=== PATIENT | female | born 1975 | race Hispanic/Latino ===

== ENCOUNTER 2020-06-17 16:31 | Inpatient (IN) | payer MEDICAID, OTHER, SELFPAY ==
[2020-06-17 17:17] VITALS: BMI 31.7
[2020-06-17] MEDS ORDERED: hydrALAZINE 20 MG/ML VIAL SLOW IVP PRN (17:28)
--- NOTE | 2020-06-17 18:24 | PDOC.LDHP ---
Labor and Delivery H&P Chief complaint: other (NST/BPP) HPI: 45 y/o at 33w3d, patient of Dr. Mckeon, presents for scheduled NST/BPP for CHTN with superimposed preeclampsia. Doing well without complaints. Denies VB, LOF, ctx, PIH sx, or UTI sx. +FM. ROS neg for HEENT, cv, pulm, gi, gu, neuro, psych, skin, musculoskeletal or constitutional symptoms other than mentioned above. OB History Details: 1 SAB Current complications: hypertension, preeclampsia without severe features Current medications: pre-octavia vitamins, other (Procardia XL 60mg daily) Previous surgical history: none Allergies/Adverse Reactions: Allergies Allergy/AdvReac Type Severity Reaction Status Date / Time Penicillins Allergy Mild Hives Verified 06/17/20 17:18 Social history: none - Physical Exam Vital signs reviewed and normal: yes General: NAD, resting Lungs: nonlabored breathing Abdomen: gravid Extremeties: no edema FHT: category 1 (130s, mod variability, + accels, no decels) [place] contractions every: none - OB Labs Blood type: A RH: positive Antibody Screen: negative HIV: negative RPR: negative HEPSAg: negative 1 hour GCT: positive 3 hour GTT: normal Rubella: immune - Assessment 45 y/o at 33w3d with reassuring status with BPP 10/10. RADHA 10.9cm. Several intermittent severe range BPs. Protein creatinine ratio 6.6, which is double from last week. Labs otherwise stable. - Plan Plan: observation in L&D -: Continue to monitor BPs. Continuous monitoring of baby overnight.
[2020-06-17 19:12] LABS: #Basophils 0.1 thou/uL (0.0-0.2); #Eosinphils 0.2 thou/uL (0.0-0.7); #Lymphocytes 2.7 thou/uL (1.20-3.40); #Neutrophils 9.1 thou/uL (1.40-6.50); %Basophils 0.7 % (0.0-1.0); %Eosinophils 1.4 % (0.0-10.0); %Lymphocytes 20.5 % (21.0-51.0); %Monocytes 7.3 % (0.0-10.0); %Neutrophils 70.1 % (42.0-75.0); Hemoglobin 13.5 g/dL (12.0-16.0); Mean Corpuscular HGB CONC 32.4 g/dL (32.0-36.0); Mean Corpuscular Hemoglobin 29.9 pg (27.0-31.0); Mean Corpuscular Volume 92.4 fL (78.0-98.0); Mean Platelet Volume 7.5 fL (7.4-10.4); Platelet Count 332 thou/uL (130-400); RBC Distribution Width 13.2 % (11.5-14.5); Red Blood Cell (RBC) Count 4.51 mill/uL (4.20-5.40)
[2020-06-17 19:31] LABS: ALT (SGPT) 28 U/L (8-55); AST (SGOT) 25 U/L (5-34); Albumin 2.8 g/dL (3.5-5.0); Alkaline Phosphatase 152 U/L (40-110); Anion Gap 11 mmol/L (10-20); BUN (Urea Nitrogen) 10 mg/dL (7.0-18.7); Bilirubin, Total Less than 0.2 mg/dL (0.2-1.2); Calc. Creatinine Clearance 161 mL/min (70-130); Calcium 8.4 mg/dL (7.8-10.44); Carbon Dioxide 21 mmol/L (22-29); Chloride 107 mmol/L (98-107); Globulin 2.7 g/dL (2.4-3.5); Glucose 94 mg/dL (70-105); Potassium 4.1 mmol/L (3.5-5.1); Protein, Total 5.5 g/dL (6.0-8.3); Sodium 135 mmol/L (136-145)
[2020-06-17 19:36] LABS: Creatinine, Urine 37.27 mg/dL (47-110)
[2020-06-17] MEDS ORDERED: Acetaminophen 500 MG TAB PO PRN (20:18)
[2020-06-17] MEDS ORDERED: Promethazine HCl 25 MG/ML VIAL IM PRN (20:18)
[2020-06-17] MEDS ORDERED: Ondansetron PF 4 MG/2 ML Vial IVP PRN (20:18)
--- NOTE | 2020-06-17 20:49 | ULT ---
BIOPHYSICAL PROFILE: 06/17/20 HISTORY: Hypertension. TECHNIQUE: Multiplanar mares scale and color Doppler images were obtained in a limited ultrasound for bioph ysical profile. FINDINGS: There is live intrauterine . Movement was seen during the examination. A heart rate wa s not documented on this exam. RADHA is 10.9 cm, which is normal. The fetus scored 8 of 8 on the biophy sical profile, which is normal. The placenta is anterior in location. IMPRESSION: Normal biophysical profile. POS: EAA
[2020-06-18 06:54] LABS: Hemoglobin 12.6 g/dL (12.0-16.0); Mean Corpuscular Hemoglobin 29.3 pg (27.0-31.0); Mean Platelet Volume 7.4 fL (7.4-10.4); Platelet Count 326 thou/uL (130-400); RBC Distribution Width 13.2 % (11.5-14.5); Red Blood Cell (RBC) Count 4.31 mill/uL (4.20-5.40); White Blood Cell (WBC) Count 10.7 thou/uL (4.8-10.8)
[2020-06-18 07:24] LABS: Syphilis Antibody Nonreactive (Nonreactive); Syphilis Antibody Index 0.03 S/CO (<1.00 Non-Reactive)
[2020-06-18 07:25] LABS: HBSAg Index 0.19 S/CO (0-0.99); Hep B Surf Ag Non-Reactive S/CO (NonReactive)
[2020-06-18] MEDS ORDERED: NIFEdipine XL 60 MG TAB PO SCH (10:15)
== END 2020-06-18 15:57 | disposition home or self-care (01) | DRG 833 ==
LOC: L&D/OP 16:31 → L&D 20:18
PROVIDERS: ADMIT Family Medicine; ATTEND Family Medicine
DX: O11.3 Pre-existing hypertension with pre-eclampsia, third trimester (principal); O10.913 Unspecified pre-existing hypertension complicating pregnancy, third trimester; Z3A.33 33 weeks gestation of pregnancy; Z88.0 Allergy status to penicillin
CPT/HCPCS: 36415; 76819; 80053; 82570; 84156; 85025; 86780; 86850; 86900; 86901; 87340; 99285